=== PATIENT | female | born 1955 | race Asian ===

== ENCOUNTER 2019-01-05 01:52 | Emergency (ER) | payer OTHER ==
[2019-01-05] MEDS ORDERED: SODIUM CHLORIDE 1,000 ML IV STA (01:55)
[2019-01-05] MEDS ORDERED: FAMOTIDINE 20 MG/50 ML IVPB 20 MG/50 ML MG IVPB ONE ×2 (01:55→02:22)
[2019-01-05] MEDS ORDERED: ACETAMINOPHEN 1000 MG/100 ML VIAL (NON FORMULARY) IVPB ONE (01:55)
--- NOTE | 2019-01-05 01:55 | PDOC ---
History of Present Illness - General Chief Complaint: Pain, Acute Stated Complaint: ABDOMINAL PAIN Time Seen by Provider: 01/05/19 01:55 History Source: Patient, Family - History of Present Illness Initial Comments: 01/05/19 03:13 HPI 63 YOF with h/o HLD presenting with epigastric AP x 1 day, beginning yesterday morning. +suspicious food intake, vegetable sushi rolls possible precipitant. AP described as crampy, nonradiating, intermittent, no exacerbating or alleviating factors. she had been using hot water bag over her abdomen, with no relief and mild redness to the skin. Denies fever, chills, chest pain, SOB, palpitation, dizziness, weakness, V, D, bladder and bowel problems, leg swelling, No sick contacts or travel. No new changes in medications. Allergies: None Past Medical History: HLD Social history: Lives with family. No tobacco, ETOH or drug use. Surgical history: BSO Meds: as documented in EMR Review of systems Constitutional: no fevers or chills. HEENT: no headache or dizziness. No congestion. CVS: no cp or syncope. Resp: no sob. No cough. Gastrointestinal: +abdominal pain, No nausea or vomiting. No diarrhea. Genitourinary: no urinary sx, hematuria. MUSCULOSKELETAL: No joint pain and swelling. No neck or back pain. SKIN: +skin redness. no discharge, no rash. No wounds. Hematologic: no easy bruising/bleeding. NEUROLOGIC: No headache, dizziness, LOC or altered mental status. No weakness, numbness or tingling. Allergic/Immunologic: no allergies All other systems reviewed and negative, or as documented in HPI. Physical exam: General: Well appearing, awake and alert, NAD. HEENT: NCAT, PERRL, EOMI, clear conjunctiva, anicteric, moist mucus membranes, clear oropharynx, no oral lesions.. Neck: neck supple, FROM Resp: CTAB, normal and even respirations, no respiratory distress CVS: RRR, no murmurs, 2+ peripheral pulses throughout, no peripheral edema Abdomen: soft, nondistended, +epigastric TTP, no rebound or guarding. no murphys sign. no CVAT. +anterior abdomen with superficial erythematous lesions, superficial nonblistering scanlon. Back: nontender, normal inspection and ROM MSK: no edema, TEE x4, ROM intact. No clubbing or cyanosis. normal bulk and tone. Neuro: alert, clear speech, oriented appropriately Skin: warm and well perfused, cap refill <2 sec, normal color 01/05/19 03:16 Past History - Past Medical History Allergies/Adverse Reactions: Allergies Allergy/AdvReac Type Severity Reaction Status Date / Time No Known Allergies Allergy Verified 01/05/19 01:54 Home Medications: Ambulatory Orders Famotidine [Pepcid -] 20 mg PO BID #14 tablet 01/05/19 Mag Hydrox/Al Hydrox/Simeth [Mylanta Suspension -] 30 ml PO Q6H PRN #1 bottle Ondansetron [Zofran Odt -] 4 mg SL TID PRN #9 od.tablet 01/05/19 Simvastatin 10 mg PO DAILY 01/05/19 Heart Score/ECG Review #1 ECG reviewed & interpreted by me at: 02:20 General ECG Interpretation: Sinus Rhythm, Normal Rate, Normal Intervals, No acute ischemic changes Compared to previous ECG there are: Previous ECG unavail ED Treatment Course - LABORATORY CBC & Chemistry Diagram: 01/05/19 02:12 01/05/19 02:12 Medical Decision Making - Medical Decision Making 01/05/19 03:18 hpi as documented VS reviewed wnl. no fever, nontoxic. +epigastric pain noted, no peritoneal findings, no systemic findings ddx. pancreatitis, hepatitis, PUD, gastritis, esophageal spasm, dehydration, electrolyte/metabolic derangements. cholecystitis, biliary colic. ACS, arrhythmia, atypical CP. labs and lytes wnl. normal wbc ct. normal LFTs and lipase. ekg sinus rhythm, no ischemia. trop neg, doubt cardiac/acs analgesia with IV tylenol and pepcid, IVF, feels clinically improved. most likely sx from food trigger/PUD vs gastritis. doubt biliary etiology or serious abdominal pathology, as symptoms improving and clinically better potassium repleted supportive care and hydration advised, rx pepcid, maalox prn with heartburn sx/ food, zofran. dispo: Pt to be discharged in stable condition. Patient and family made aware of impression and plan, return precautions discussed (including but not limited to worsening pain or symptoms), fevers, or signs of infection, chest pain, respiratory distress, inability to tolerate oral intake, dehydration, syncope, or neurologic changes). Follow up with PMD and/or GI specialist as recommended, follow up information provided, take medications as instructed for duration of time. continue with supportive care, avoid triggers and precipitants. All questions answered to patient's satisfaction and expressed understanding and comfort with this. Patient does not suffer from an acute life-threatening medical condition at this time and is safe for outpatient follow-up. 01/05/19 03:20 01/05/19 03:31 01/05/19 03:36 *DC/Admit/Observation/Transfer Diagnosis at time of Disposition: Abdominal pain Qualifiers: Abdominal location: upper abdomen, unspecified Qualified Code(s): R10.10 - Upper abdominal pain, unspecified - Discharge Dispostion Disposition: HOME Condition at time of disposition: Stable Decision to Admit order: No - Prescriptions Prescriptions: Famotidine [Pepcid -] 20 mg PO BID #14 tablet Mag Hydrox/Al Hydrox/Simeth [Mylanta Suspension -] 30 ml PO Q6H PRN #1 bottle PRN Reason: heartburn Ondansetron [Zofran Odt -] 4 mg SL TID PRN #9 od.tablet PRN Reason: Nausea - Referrals Referrals: Felipe Vazquez DO [Staff Physician] - Scot Moore MD [Staff Physician] - Amari Stanford MD [Staff Physician] - - Patient Instructions Printed Discharge Instructions: DI for Abdominal Pain-Adult Additional Instructions: 1) Please follow-up with your primary care doctor in the next 1-2 days. Please call tomorrow for for any urgent issues. 2) You were given a copy of the tests performed today. Please bring the results with you and review them with your primary care doctor. Your laboratory / imaging results were normal, your ekg was normal as well. 3) If you have any worsening of symptoms or any other concerns please return to the ED immediately. Return if worsening symptoms including fevers, headache, vomiting, visual or hearing disturbances, abdominal pain, chest pain, shortness of breath, syncope, dehydration, inability to take things by mouth/vomiting, altered mental status, or worsening concerning symptoms. 4) Please continue taking your home medications as directed. your medications on discharge include zofran as needed for nausea, pepcid 1-2x per day and maalox or mylanta very 6 hours with meals to prevent heartburn if you have symptoms. . side effects may include upset stomach, abdominal pain, vomiting, or diarrhea. do not drink alcohol with your medications. Stay well hydrated and rest adequately. Make an appointment. If you cannot follow-up with your primary care doctor please return to the ED - Post Discharge Activity
[2019-01-05 02:05] VITALS: BP 143/88; PULSE 78; TEMP 98.6; BMI 24.7
[2019-01-05] MEDS ORDERED: ACETAMINOPHEN INJECTION 100 ML IVPB ONE (02:13)
[2019-01-05 03:01] LABS: BASO % 0.3 % (0-2.0); EOS % 0.2 % (0-4.5); HEMATOCRIT 34.4 % (32.4-45.2); HEMOGLOBIN 11.9 GM/dL (10.7-15.3); LYMPH % 23.2 % (8-40); MCHC 34.7 g/dl (32.0-36.0); MEAN CELL VOLUME 89.4 fl (80-96); MEAN PLT VOLUME 7.9 fl (7.5-11.1); MONO % 5.7 % (3.8-10.2); NEUT % 70.6 % (42.8-82.8); PLATELET COUNT 228 K/MM3 (134-434); RBC 3.85 M/mm3 (3.60-5.2); RDW 12.6 % (11.6-15.6); WHITE BLOOD COUNT 5.5 K/mm3 (4.0-10.0)
[2019-01-05 03:31] LABS: ALK PHOS 70 U/L (45-117); ANION GAP 7 MMOL/L (8-16); BILIRUBIN,TOTAL 0.8 mg/dL (0.2-1); BLOOD UREA NITROGEN 9 mg/dL (7-18); CALCIUM 9.1 mg/dL (8.5-10.1); CHLORIDE 103 mmol/L (98-107); CO2 28 mmol/L (21-32); CREATININE 0.5 mg/dL (0.55-1.3); GLUCOSE,RANDOM 98 mg/dL (74-106); LIPASE 67 U/L (73-393); POTASSIUM 3.2 mmol/L (3.5-5.1); SGOT/AST 13 U/L (15-37); SGPT/ALT 22 U/L (13-61); SODIUM 138 mmol/L (136-145); TOT PROT 7.2 g/dl (6.4-8.2)
[2019-01-05] MEDS ORDERED: POTASSIUM CHLORIDE TABS 20 MEQ TABLET.ER (FP) PO ONE ×2 (03:31→03:32)
--- NOTE | 2019-01-05 10:05 | EKG ---
Test Reason : Blood Pressure : / mmHG Vent. Rate : 071 BPM Atrial Rate : 071 BPM P-R Int : 188 ms QRS Dur : 088 ms QT Int : 390 ms P-R-T Axes : 056 051 040 degrees QTc Int : 423 ms NORMAL SINUS RHYTHM NORMAL ECG NO PREVIOUS ECGS AVAILABLE Confirmed by BECKY GUZMAN MD ([id number]) on 01/05/2019 10:05:14 AM Referred By: MD HAWKINS Confirmed By:BECKY GUZMAN MD
== END 2019-01-05 03:52 | disposition home or self-care (01) ==
LOC: FER 01:52
PROC: 3E033NZ Introduction of Analgesics, Hypnotics, Sedatives into Peripheral Vein, Percutaneous Approach (ICD-10-PCS; principal; 2019-01-05)
PROC: 3E0337Z Introduction of Electrolytic and Water Balance Substance into Peripheral Vein, Percutaneous Approach (ICD-10-PCS; 2019-01-05)
PROC: 3E033GC Introduction of Other Therapeutic Substance into Peripheral Vein, Percutaneous Approach (ICD-10-PCS; 2019-01-05)
DX: R10.10 Upper abdominal pain, unspecified (principal); K58.9 Irritable bowel syndrome, unspecified
CPT/HCPCS: 36415; 80053; 83690; 84484; 85025; 93005; 99282-25; J0131; J7030